=== PATIENT | male | born 1995 | race African-American/Black ===

== ENCOUNTER 2017-05-18 23:49 | Emergency (ER) | payer SELFPAY ==
[~2017-05-18] VITALS: Ht 185.4 cm; Wt 84.0 kg
[2017-05-19 00:16] VITALS: BP 121/83
== END 2017-05-19 03:30 | disposition left against medical advice (07) ==
LOC: ER 23:49
DX: Z53.21 Procedure and treatment not carried out due to patient leaving prior to being seen by health care provider (principal)